=== PATIENT | female | born 1935 | race Caucasian/White ===

== ENCOUNTER 2017-05-06 09:30 | Emergency (ER) | payer OTHER, BC ==
[2017-05-06 10:02] VITALS: BP 130/67; PULSE 84; TEMP 98.1; BMI 25.7
[2017-05-06] MEDS ORDERED: KETOROLAC TROMETHAMINE 60 MG/2 ML VIAL IM ONE (11:38)
[2017-05-06] MEDS ORDERED: KETOROLAC TROMETHAMINE 30 MG/1 ML VIAL IM ONE (11:41)
[2017-05-06] MEDS ORDERED: KETOROLAC TROMETHAMINE 30 MG/1 ML VIAL ONE (11:41)
--- NOTE | 2017-05-06 11:41 | PDOC ---
History of Present Illness - General Chief Complaint: Back Pain Stated Complaint: RT HIP PAIN Time Seen by Provider: 05/06/17 11:29 History Source: Patient Exam Limitations: No Limitations - History of Present Illness Initial Comments: 05/06/17 11:38 81 yr female with c/o right buttock pain worse with walking for 2 days. Pt states she fell one month ago injured her right leg. Pt did not have medical attention at that time. Pt states she has no abd pain neg nvd neg urinary or bowel complaints. 05/06/17 11:41 Past History - Past Medical History Allergies/Adverse Reactions: Allergies Allergy/AdvReac Type Severity Reaction Status Date / Time No Known Allergies Allergy Verified 05/06/17 10:02 Home Medications: Ambulatory Orders Ibuprofen 600 mg PO TID PRN #20 tablet 05/06/17 Diabetes: Yes HTN: Yes Hypercholesterolemia: Yes Thyroid Disease: Yes Other medical history: carpal tunnel, cataract - Immunization History Immunization Up to Date: Yes - Suicide/Smoking/Psychosocial Hx Smoking History: Never smoked Hx Alcohol Use: No Drug/Substance Use Hx: No *Physical Exam - Vital Signs Last Vital Signs Temp Pulse Resp BP Pulse Ox 98.1 F 84 20 130/67 100 05/06/17 09:35 05/06/17 09:35 05/06/17 09:35 05/06/17 09:35 05/06/17 09:35 - Physical Exam General Appearance: Yes: Nourished, Appropriately Dressed HEENT: positive: EOMI, NAJMA, Normal ENT Inspection, TMs Normal, Pharynx Normal Neck: positive: Supple. negative: Tender Respiratory/Chest: positive: Lungs Clear, Normal Breath Sounds. negative: Chest Tender Cardiovascular: positive: Regular Rhythm, Regular Rate Gastrointestinal/Abdominal: positive: Normal Bowel Sounds, Soft Musculoskeletal: positive: Normal Inspection, Other (neg bruising , neg crepitus , neg numbness or tingling , neg vetebral tenderness ). negative: CVA Tenderness (L), Vertebral Tenderness Extremity: positive: Normal Capillary Refill, Normal Inspection, Normal Range of Motion, Other (pain with right leg SLR , point tenderness to right buttock ) Integumentary: positive: Normal Color, Dry, Warm Neurologic: positive: Normal Response, Motor Strength 5/5, Finger to Nose ( intact). negative: Numbness, Sensory Deficit Deep Tendon Reflexes: Ankle (L): 2+, Ankle (R): 2+, Knee (L): 2+, Knee (R): 2+ Medical Decision Making - Medical Decision Making 05/06/17 12:33 cc: right buttock pain radiates to thigh worse with walking denies abd burch no rectal pain pain worsened with SLR of the right leg pt has history of low back pain pt is ambulatory with steady gait. pt s/p mechanical fall one and a half months ago landed on right hip and leg, pt states the pain did improve after the fall taking tylenol with relief pt now with pain to buttock started yesterday when she woke up neg saddle anesthesia *DC/Admit/Observation/Transfer Diagnosis at time of Disposition: Acute sciatica - Discharge Dispostion Disposition: HOME Condition at time of disposition: Good - Prescriptions Prescriptions: Ibuprofen 600 mg PO TID PRN #20 tablet PRN Reason: Pain - Patient Instructions Additional Instructions: please follow with the orthopedist or your primary care doctor this week no heavy lifting or bending apply warm compresses to the area of pain every 3 hrs for 20 minutes return if any worsening symptoms
== END 2017-05-06 13:45 | disposition home or self-care (01) ==
LOC: JERFT 09:30
PROC: 3E0233Z Introduction of Anti-inflammatory into Muscle, Percutaneous Approach (ICD-10-PCS; principal; 2017-05-06)
DX: M54.31 Sciatica, right side (principal); I10 Essential (primary) hypertension; E11.9 Type 2 diabetes mellitus without complications; E78.00 Pure hypercholesterolemia, unspecified; E07.9 Disorder of thyroid, unspecified
CPT/HCPCS: 73523-TC; 96372; 99281-25

== ENCOUNTER 2017-05-07 19:12 | Emergency (ER) | payer OTHER, BC ==
[2017-05-07 19:45] VITALS: BP 134/66; PULSE 88; TEMP 97.8; BMI 25.7
--- NOTE | 2017-05-07 22:02 | PDOC ---
History of Present Illness - General Chief Complaint: Rash Stated Complaint: RASH Time Seen by Provider: 05/07/17 21:24 History Source: Patient Exam Limitations: No Limitations - History of Present Illness Initial Comments: 05/07/17 22:02 Patient is a 81-year-old female history of hypertension, high cholesterol, hypothyroidism. Presents emergency department for evaluation of rash. Patient was seen in the emergency department yesterday for sciatic pain and was given Toradol 30 mg IM. Was discharged home on Motrin 600 mg every 8 hours. Patient states she took one Motrin at 6 AM and then again at 12 PM noticed fine macular pruritic rash to chest and back. Came to the emergency department for evaluation. Denies any respiratory difficulty, no pruritus noted upon arrival. Allergies: No known allergies Medications: See medication list Family History: Non-contributory Social History: Denies smoking, alcohol use, or IVDU Review of Systems GENERAL/CONSTITUTIONAL: No fever or chills. No weakness. No weight change. HEAD, EYES, EARS, NOSE AND THROAT: No change in vision. No ear pain or discharge. No sore throat. CARDIOVASCULAR: No chest pain or shortness of breath. RESPIRATORY: No cough, wheezing, or hemoptysis. GASTROINTESTINAL: No nausea, vomiting, diarrhea or constipation. No rectal bleeding. GENITOURINARY: No dysuria, frequency, or change in urination. MUSCULOSKELETAL: No joint or muscle swelling or pain. No neck or back pain. SKIN AND BREASTS: Fine macular rash to chest and back NEUROLOGIC: No headache, vertigo, loss of consciousness, or loss of sensation. ENDOCRINE: No increased thirst. No abnormal weight change. HEMATOLOGIC/LYMPHATIC: No anemia, easy bleeding, or history of blood clots. ALLERGIC/IMMUNOLOGIC: No hives . No latex allergy. Physical Exam: GENERAL: The patient is awake, alert, and fully oriented, in no acute distress. EYES: Pupils equal, round and reactive to light, extraocular movements intact, sclera anicteric, conjunctiva clear. ENT: Ears normal, nares patent, oropharynx clear without exudates. Moist mucous membranes. No uvula deviation NECK: Normal range of motion, supple without lymphadenopathy, JVD, or masses. No stridor LUNGS: Breath sounds equal, clear to auscultation bilaterally. No wheezes, and no crackles. HEART: Regular rate and rhythm, normal S1 and S2 without murmur, rub or gallop. ABDOMEN: Soft, nontender, normoactive bowel sounds. No guarding, no rebound. No masses. No bruising or abrasions RECTAL : Guaiac negative, normal rectal tone. MUSCULOSKELETAL: Normal range of motion, no edema. No clubbing or cyanosis. No cords, erythema, or tenderness. No CVA Tenderness with fist. NEUROLOGICAL: Cranial nerves II through XII grossly intact. Normal speech, normal gait. SKIN: Warm, Dry, normal turgor, fine macular rash to chest and back 05/07/17 22:08 Past History - Past Medical History Allergies/Adverse Reactions: Allergies Allergy/AdvReac Type Severity Reaction Status Date / Time No Known Allergies Allergy Verified 05/07/17 19:44 Home Medications: Ambulatory Orders Ibuprofen 600 mg PO TID PRN #20 tablet 05/06/17 Amitriptyline HCl [Elavil -] 25 mg PO HS 05/07/17 Bimatoprost [Lumigan] 1 drop IO DAILY 05/07/17 Gabapentin [Neurontin -] 300 mg PO Q8H 05/07/17 Levothyroxine [Synthroid -] 50 mcg PO DAILY 05/07/17 Losartan Potassium [Cozaar -] 25 mg PO DAILY 05/07/17 Metformin HCl 500 mg PO BID 05/07/17 Omeprazole 20 mg PO DAILY 05/07/17 Simvastatin [Zocor -] 40 mg PO HS 05/07/17 Diabetes: Yes HTN: Yes Hypercholesterolemia: Yes Thyroid Disease: Yes - Immunization History Immunization Up to Date: Yes - Suicide/Smoking/Psychosocial Hx Smoking History: Never smoked Have you smoked in the past 12 months: No Information on smoking cessation initiated: No Hx Alcohol Use: No Drug/Substance Use Hx: No *Physical Exam - Vital Signs Last Vital Signs Temp Pulse Resp BP Pulse Ox 97.8 F 88 18 134/66 100 05/07/17 19:39 05/07/17 19:39 05/07/17 19:39 05/07/17 19:39 05/07/17 19:39 Medical Decision Making - Medical Decision Making 05/07/17 22:05 A/P: Patient here for evaluation of fine macular rash to chest and back denies any new lotion soaps or detergents, states he only thing new that she did was have the Toradol 30 mg IM injection yesterday. Did not have rash upon discharge from emergency department developed a today after second dose of Motrin. Patient has taken Motrin in the past without any difficulty is unsure what could have caused the rash. Patient denies any pruritus there is a fine macular rash still noted. Encourage patient to discontinue use of Motrin at this time only take Tylenol as needed for pain. Follow-up with PMD tomorrow. Patient denies any pruritus if pruritus starts May take Benadryl however encouraged not to take Benadryl unless she needs it because of sleep affect and she lives alone. She is accompanied here today by her neighbor who states she will help her and watch her. We'll DC patient home now, follow-up tomorrow as needed with PMD. *DC/Admit/Observation/Transfer Diagnosis at time of Disposition: Rash and nonspecific skin eruption - Discharge Dispostion Disposition: HOME Condition at time of disposition: Good Admit: No - Referrals Referrals: Griffin Snyder MD [Primary Care Provider] - - Patient Instructions Additional Instructions: You were given Toradol yesterday Please discontinue use of Motrin until this rash is resolved May take Tylenol 500 mg, extra strength, 2 tablets every 8 hours as needed for pain Follow Up with PMD for sciatica and rash evaluation. If any increased rash, respiratory difficulty, or any other concerns return to ER - Post Discharge Activity
== END 2017-05-07 22:17 | disposition home or self-care (01) ==
LOC: JERFT 19:12
DX: R21 Rash and other nonspecific skin eruption (principal); I10 Essential (primary) hypertension; E78.00 Pure hypercholesterolemia, unspecified; E03.9 Hypothyroidism, unspecified; E11.9 Type 2 diabetes mellitus without complications; Z79.84 Long term (current) use of oral hypoglycemic drugs
CPT/HCPCS: 99281-25

== ENCOUNTER 2017-05-08 19:47 | Emergency (ER) | payer OTHER, BC ==
[2017-05-08 19:53] VITALS: BP 163/84; PULSE 79; TEMP 98; BMI 25.7
[2017-05-08] MEDS ORDERED: methylPREDNISolone NA SUCC 125 MG/2 ML VIAL IVPB ONE (21:08)
[2017-05-08] MEDS ORDERED: SODIUM CHLORIDE 500 ML IV STA (21:08)
[2017-05-08] MEDS ORDERED: FAMOTIDINE 20 MG/50 ML IVPB 50 ML IVPB ONE ×2 (21:08→21:34)
--- NOTE | 2017-05-08 21:31 | PDOC ---
History of Present Illness - General Chief Complaint: Syncope/Near Syncope Stated Complaint: RASH/ S.OB Time Seen by Provider: 05/08/17 20:47 History Source: Patient Exam Limitations: No Limitations - History of Present Illness Initial Comments: 05/08/17 21:14 81yo female patient w/ PmHx: back pain, HLD, HTN, DM presents to ED a third time this week c/o syncope and rash. Patient states on 05/06 she was seen for back pain. Patient was given IM Toradol and po Ibuprofen. She states after her second dose of po Ibuprofen, she broke out into a rash. Patient was then seen on 05/08 for rash, which was attributed to Ibuprofen use. Patient reports she has taken Ibuprofen in the past w/o any complaints. She believes rash is due to Toradol injection. Patient now states having a near-syncope episode in her living room after taking Benadryl at 530pm. Patient reports dizziness, dry mouth and CP. She denies diff breathing, cough, congestion, back pain, dysuria, hematuria, abdominal pain, or any other complaint at this time. Past History - Travel Traveled outside of the country in the last 30 days: No Close contact w/someone who was outside of country & ill: No - Past Medical History Allergies/Adverse Reactions: Allergies Allergy/AdvReac Type Severity Reaction Status Date / Time No Known Allergies Allergy Verified 05/08/17 19:53 Home Medications: Ambulatory Orders Ibuprofen 600 mg PO TID PRN #20 tablet 05/06/17 Amitriptyline HCl [Elavil -] 25 mg PO HS 05/07/17 Bimatoprost [Lumigan] 1 drop IO DAILY 05/07/17 Gabapentin [Neurontin -] 300 mg PO Q8H 05/07/17 Levothyroxine [Synthroid -] 50 mcg PO DAILY 05/07/17 Losartan Potassium [Cozaar -] 25 mg PO DAILY 05/07/17 Metformin HCl 500 mg PO BID 05/07/17 Omeprazole 20 mg PO DAILY 05/07/17 Simvastatin [Zocor -] 40 mg PO HS 05/07/17 Famotidine [Pepcid] 20 mg PO BID #14 tablet 05/09/17 Prednisone [Prednisone 50 MG TABLETS] 50 mg PO DAILY #4 tablet 05/09/17 Diabetes: Yes HTN: Yes Hypercholesterolemia: Yes Thyroid Disease: Yes - Immunization History Immunization Up to Date: Yes - Suicide/Smoking/Psychosocial Hx Smoking History: Never smoked Have you smoked in the past 12 months: No Hx Alcohol Use: No Drug/Substance Use Hx: No Review of Systems - Review of Systems Able to Perform ROS?: Yes Is the patient limited Albanian proficient: No Constitutional: No: Chills, Fever Respiratory: No: Cough, Shortness of Breath, Wheezing Cardiac (ROS): No: Chest Pain, Palpitations, Syncope, Chest Tightness ABD/GI: Yes: Poor Fluid Intake. No: Constipated, Diarrhea, Nausea, Poor Appetite, Vomiting : No: Burning, Dysuria, Flank Pain, Hematuria Musculoskeletal: No: Back Pain Integumentary: Yes: Rash Neurological: Yes: Dizziness. No: Headache, Seizure, Tingling, Tremors, Weakness, Ataxia All Other Systems: Reviewed and Negative *Physical Exam - Vital Signs Last Vital Signs Temp Pulse Resp BP Pulse Ox 98 F 79 18 163/84 88 L 05/08/17 19:52 05/08/17 19:52 05/08/17 19:52 05/08/17 19:52 05/08/17 19:52 - Physical Exam General Appearance: Yes: Nourished, Appropriately Dressed. No: Apparent Distress, Mild Distress, Moderate Distress, Severe Distress HEENT: positive: EOMI, NAJMA, Normal ENT Inspection, Normal Voice, Symmetrical, TMs Normal, Pharynx Normal. negative: Nasal Congestion, Rhinorrhea, Sinus Tenderness, TM Bulging, TM Dull, TM Erythema Neck: positive: Trachea midline, Supple. negative: Stridor, Lymphadenopathy (R) , Lymphadenopathy (L) Respiratory/Chest: positive: Lungs Clear, Normal Breath Sounds. negative: Chest Tender, Respiratory Distress, Accessory Muscle Use, Labored Respiration, Rapid RR Cardiovascular: positive: Regular Rhythm, Regular Rate Gastrointestinal/Abdominal: positive: Normal Bowel Sounds, Soft. negative: Distended, Guarding, Rebound, Tenderness Musculoskeletal: positive: Normal Inspection. negative: CVA Tenderness Extremity: positive: Normal Capillary Refill, Normal Inspection, Normal Range of Motion. negative: Pedal Edema, Swelling, Calf Tenderness, Erythema, Inflammation Integumentary: positive: Normal Color, Dry, Warm, Rash (Scattered Macula rash to upper and lower extremites including trunk. Court on pressure. Itchy) Neurologic: positive: admin asst II-XII NML intact, Fully Oriented, Alert, Normal Mood/ Affect, Normal Response, Motor Strength 5/5 Heart Score/ECG Review - History History: Slightly suspicious - Electrocardiogram EKG: Normal - Age Age: >/= 65 - Risk Factors Risk Factors Heart Score: Yes Hx Hypercholesterolemia, Yes Hx Hypertension, Yes Hx Diabetes, No Smoking History, No Positive family hx of cardiac disease, No Hx Obesity Based on the list above the patient has:: >/=3 risk factors or Hx atherosclerotic disease - Troponin Troponin: </= normal limit - Score Heart Score - Total: 4 - ECG Impressions Normal ECG: Yes Non-specific ST Elevation: No Ischemic Changes: No Bradycardia: No Torsades luisito Pointes: No WPW: No ED Treatment Course - LABORATORY CBC & Chemistry Diagram: 05/08/17 21:30 05/08/17 21:30 Medical Decision Making - Medical Decision Making 05/09/17 01:[address] De La Vega regarding patient findings. Patient cleared to be d/c'd to home with follow up tomorrow. Patient has no complaints at this time. Will d/c home on 3 days of po Steroids. *DC/Admit/Observation/Transfer Diagnosis at time of Disposition: Near syncope Allergic reaction Qualifiers: Encounter type: initial encounter Qualified Code(s): T78.40XA - Allergy, unspecified, initial encounter - Discharge Dispostion Disposition: HOME Condition at time of disposition: Improved Admit: No - Prescriptions Prescriptions: Famotidine [Pepcid] 20 mg PO BID #14 tablet Prednisone [Prednisone 50 MG TABLETS] 50 mg PO DAILY #4 tablet - Patient Instructions Printed Discharge Instructions: DI for Adverse Drug Reaction -- Allergic, DI for Syncope in Adults (Fainting) Additional Instructions: Follow up with Dr. De La Vega or Kwaku tomorrow. Call to schedule appointment. Take medications as prescribed to prevent rash from worsening. Drink plenty water. If you take Benadryl be sure you are not traveling, driving, or any duties as this medication can make you drowsy. Print Language: MACEDONIAN
[2017-05-08] MEDS ORDERED: methylPREDNISolone NA SUCC 125 MG/2 ML VIAL ONE (21:33)
[2017-05-08 21:35] LABS: BASOPHIL 0.9 % (0-2.0); EOSINOPHIL 1.8 % (0-4.5); MCH 29.8 pg (25.7-33.7); MCHC 33.8 g/dl (32.0-36.0); MEAN PLT VOLUME 6.4 fl (7.5-11.1); NEUTROPHILS 58.1 % (42.8-82.8); PLATELET COUNT 313 K/MM3 (134-434); RDW 14.6 % (11.6-15.6); WHITE BLOOD COUNT 6.8 K/mm3 (4.0-10.0)
[2017-05-08 22:03] LABS: URINE APPEARANCE CLEAR; URINE BILIRUBIN NEGATIVE (NEGATIVE); URINE BLOOD 1+ (NEGATIVE); URINE COLOR COLORLESS; URINE GLUCOSE (UA) NEGATIVE (NEGATIVE); URINE KETONE NEGATIVE (NEGATIVE); URINE LEUK ESTERASE NEGATIVE (NEGATIVE); URINE NITRITE NEGATIVE (NEGATIVE); URINE PROTEIN NEGATIVE (NEGATIVE); URINE UROBILINOGEN NEGATIVE mg/dL (0.2-1.0)
[2017-05-08 22:04] LABS: ALBUMIN 3.8 g/dl (3.4-5.0); ANION GAP 9 (8-16); BILIRUBIN,TOTAL 0.2 mg/dL (0.2-1.0); CALCIUM 9.1 mg/dL (8.5-10.1); CO2 26 mmol/L (21-32); CREATININE 0.6 mg/dL (0.55-1.02); GLUCOSE,RANDOM 155 mg/dL (74-106); SGPT/ALT 25 U/L (12-78)
[2017-05-08 22:05] LABS: ALK PHOS 75 U/L (45-117); CPK 147 IU/L (26-192); SGOT/AST 19 U/L (15-37)
[2017-05-08 22:07] LABS: TROPONIN I < 0.02 ng/ml (0.00-0.05)
[2017-05-08 22:27] LABS: URINE WBC <1 /hpf (3-5)
--- NOTE | 2017-05-08 23:25 | PDOC ---
*Physical Exam - Vital Signs Last Vital Signs Temp Pulse Resp BP Pulse Ox 98 F 79 18 163/84 99 05/08/17 19:52 05/08/17 19:52 05/08/17 19:52 05/08/17 19:52 05/08/17 20:51 - Physical Exam Comments: 05/08/17 23:24 The patient was examined by [ELZBIETA Carson] under my direct supervision. I personally evaluated the patient. I concur with the above findings and the plan of care. ED Treatment Course - LABORATORY CBC & Chemistry Diagram: 05/08/17 21:30 05/08/17 21:30 - ADDITIONAL ORDERS Additional order review: Laboratory Results 05/08/17 05/08/17 05/08/17 21:40 21:30 21:30 Sodium 137 Potassium 4.2 Chloride 102 Carbon Dioxide 26 Anion Gap 9 BUN 12 D Creatinine 0.6 Creat Clearance w eGFR > 60 Random Glucose 155 H D Calcium 9.1 Total Bilirubin 0.2 D AST 19 ALT 25 Alkaline Phosphatase 75 D Creatine Kinase 147 Troponin I < 0.02 Total Protein 7.0 Albumin 3.8 Urine Color Colorless Urine Appearance Clear Urine pH 6.0 Urine Protein Negative Urine Glucose (UA) Negative Urine Ketones Negative Urine Blood 1+ H Urine Nitrite Negative Urine Bilirubin Negative Urine Urobilinogen Negative Urine RBC None Urine WBC <1 05/08/17 21:30 RBC 3.91 MCV 88.0 MCHC 33.8 RDW 14.6 MPV 6.4 L Neutrophils % 58.1 Lymphocytes % 32.3 Monocytes % 6.9 Eosinophils % 1.8 D Basophils % 0.9 - Medications Given in the ED: ED Medications Discontinued Medications Generic Name Dose Route Start Last Admin Trade Name Freq PRN Reason Stop Dose Admin Famotidine/Sodium Chloride 50 mls @ 100 mls/hr 05/08/17 21:08 05/08/17 21:54 Pepcid 20 Mg Premixed Ivpb - IVPB 05/08/17 21:37 100 mls/hr ONCE ONE Administration Sodium Chloride 500 mls @ 500 mls/hr 05/08/17 21:08 05/08/17 21:54 Normal Saline - IV 05/08/17 22:07 500 mls/hr ASDIR STA Administration Methylprednisolone Sodium Succinate 125 mg 05/08/17 21:08 05/08/17 21:54 Solu-Medrol - IVPB 05/08/17 21:09 125 mg ONCE ONE Administration
--- NOTE | 2017-05-09 10:42 | EKG ---
Test Reason : Blood Pressure : / mmHG Vent. Rate : 065 BPM Atrial Rate : 065 BPM P-R Int : 186 ms QRS Dur : 078 ms QT Int : 428 ms P-R-T Axes : 067 020 034 degrees QTc Int : 445 ms NORMAL SINUS RHYTHM POSSIBLE LEFT ATRIAL ENLARGEMENT BORDERLINE ECG WHEN COMPARED WITH ECG OF 29-SEP-2014 10:34, NO SIGNIFICANT CHANGE WAS FOUND Confirmed by KEYA GRANT MD ([id number]) on 05/09/2017 10:42:00 AM Referred By: Confirmed By:KEYA GRANT MD
== END 2017-05-09 01:35 | disposition home or self-care (01) ==
LOC: JER 19:47
PROC: 3E033GC Introduction of Other Therapeutic Substance into Peripheral Vein, Percutaneous Approach (ICD-10-PCS; principal; 2017-05-08)
PROC: 3E0333Z Introduction of Anti-inflammatory into Peripheral Vein, Percutaneous Approach (ICD-10-PCS; 2017-05-08)
DX: E78.5 Hyperlipidemia, unspecified (principal); T78.40XA Allergy, unspecified, initial encounter; E78.00 Pure hypercholesterolemia, unspecified; E03.9 Hypothyroidism, unspecified; E11.9 Type 2 diabetes mellitus without complications; Z79.84 Long term (current) use of oral hypoglycemic drugs
CPT/HCPCS: 36415; 80053; 81003; 81015; 84484; 85025; 93005; 93010; 99285-25

== ENCOUNTER 2024-03-26 04:16 | Day surgery (SDC) | payer OTHER, BC ==
[2024-03-23 17:35] VITALS: BMI 25.7
[2024-03-26] MEDS: LIDOCAINE HCL 1% PRESERVATIVE FREE - 30ML VIAL IJ ONE ×3 (11:17)
[2024-03-26] MEDS: DEXAMETHASONE SOD PHOSPHATE 10 MG/1 ML VIAL IVPUSH ONE ×2 (11:17)
[2024-03-26] MEDS: IOHEXOL 180 MG/1 ML ML IJ ONE ×3 (11:17)
[2024-03-26 12:31] VITALS: RESP 18
[2024-03-26 12:34] VITALS: BP 155/82; PULSE 62; TEMP 97.8
[2024-03-26] MEDS ORDERED: ACETAMINOPHEN 500 MG TABLET (FP) PO PRN (13:03)
== END 2024-03-26 12:10 | disposition home or self-care (01) ==
LOC: JASU-SURG 04:16
PROVIDERS: ATTEND Pain Medicine Pain Medicine
PROC: 3E0R3BZ Introduction of Anesthetic Agent into Spinal Canal, Percutaneous Approach (ICD-10-PCS; 2024-03-26)
PROC: 3E0R33Z Introduction of Anti-inflammatory into Spinal Canal, Percutaneous Approach (ICD-10-PCS; principal; 2024-03-26 10:45)
DX: M54.16 Radiculopathy, lumbar region (principal)
CPT/HCPCS: 76000-TC-FY; J1100

== ENCOUNTER 2024-06-05 04:13 | Day surgery (SDC) | payer OTHER, BC ==
[2024-06-03 15:10] VITALS: BMI 25.7
[2024-06-05] MEDS ORDERED: DEXAMETHASONE SOD PHOSPHATE 10 MG/1 ML VIAL ONE (07:16)
[2024-06-05] MEDS ORDERED: LIDOCAINE HCL/PF 1% SDV 5ML VIAL ONE (07:16)
[2024-06-05] MEDS ORDERED: ACETAMINOPHEN 500 MG TABLET (FP) PO PRN (08:40)
[2024-06-05 08:59] VITALS: RESP 16
[2024-06-05] MEDS: LIDOCAINE 1% P/F 10 MG/ML VIAL INF ONE (09:35)
[2024-06-05] MEDS: DEXAMETHASONE SOD PHOSPHATE 20 MG/5 ML VIAL IM ONE (09:36)
[2024-06-05] MEDS: IOHEXOL 180 MG/1 ML ML IJ ONE (09:36)
[2024-06-05 09:55] VITALS: BP 142/62; PULSE 73; TEMP 97.6
== END 2024-06-05 10:18 | disposition home or self-care (01) ==
LOC: JASU-SURG 04:13
PROVIDERS: ATTEND Pain Medicine Pain Medicine
PROC: 3E0R3BZ Introduction of Anesthetic Agent into Spinal Canal, Percutaneous Approach (ICD-10-PCS; 2024-06-05)
PROC: 3E0R33Z Introduction of Anti-inflammatory into Spinal Canal, Percutaneous Approach (ICD-10-PCS; principal; 2024-06-05 09:33)
DX: M54.16 Radiculopathy, lumbar region (principal)
CPT/HCPCS: 76000-TC-FY; J1100